=== PATIENT | male | born 1940 | race Caucasian/White ===

== ENCOUNTER 2019-06-11 06:32 | Day surgery (SDC) | payer MEDICARE, BC ==
[~2019-06-11 06:32] MED LIST: Lactated Ringers 1,000 ML IV SCH
[2019-06-11] MEDS ORDERED: Propofol 200 MG/20 ML SDV ONE ×2 (07:28→08:32)
[2019-06-11] MEDS ORDERED: fentaNYL 100 MCG/2 ML SDV ONE (07:28)
[2019-06-11] MEDS ORDERED: Lidocaine 2% 5 ML SDV ONE (07:28)
--- NOTE | 2019-06-11 07:34 | PCM.PREANE ---
Preanesthetic Assessment - Anesthesia/Transfusion/Family Hx Anesthesia History: Prior Anesthesia Without Reaction Other Type of Anesthesia Reaction Comment: DENIES ANY PROBLEMS WITH ANESTHESIA Family History of Anesthesia Reaction: No Transfusion History: No Prior Transfusion(s) - Review of Systems General: No Symptoms Pulmonary: No Symptoms Cardiovascular: No Symptoms Gastrointestinal: No Symptoms Neurological: No Symptoms Other: Reports: None - Physical Assessment NPO Status Date: 06/11/19 NPO Status Time: 22:00 Vital Signs: Last Vital Signs Temp 97.3 F 06/11/19 06:45 Pulse 87 06/11/19 06:45 Resp 18 06/11/19 06:45 BP 124/84 06/11/19 06:45 Pulse Ox 94 L 06/11/19 06:45 Height: 5 ft 10 in Weight: 80.286 kg ASA Class: 3 Mental Status: Alert & Oriented x3 Airway Class: Mallampati = 2 Dentition: Reports: Dentures (full, upper and lower) ROM/Head Extension: Full Lungs: Clear to Auscultation, Normal Respiratory Effort Cardiovascular: Regular Rate, Regular Rhythm - Lab Values: Laboratory Last Values POC Glucose 118 mg/dL (60-110) H 06/11/19 07:01 - Allergies Allergies/Adverse Reactions: Allergies Allergy/AdvReac Type Severity Reaction Status Date / Time No Known Allergies Allergy Verified 06/08/19 08:28 - Blood Blood Available: No - Anesthesia Plan Pre-Op Medication Ordered: None - Acknowledgements Anesthesia Type Planned: General Anesthesia Pt an Appropriate Candidate for the Planned Anesthesia: Yes Alternatives and Risks of Anesthesia Discussed w Pt/Guardian: Yes Pt/Guardian Understands and Agrees with Anesthesia Plan: Yes Additional Comments: PMH: cad, no DC, but stent placed 2001, on aspirin last dose 48 hr ago, DM2 glucose 118 upon arrival, gerd, htn PLAN: tiva PreAnesthesia Questionnaire HEENT History: Reports: Other (See Below) Other HEENT History: reading glasses, top and bottom dentures Cardiovascular History: Reports: Hypertension Respiratory History: Reports: None Gastrointestinal History: Reports: None Genitourinary History: Reports: Prostate Disorder, Renal Calculus Musculoskeletal History: Reports: Arthritis Neurological History: Reports: None Psychiatric History: Reports: None Endocrine/Metabolic History: Reports: Other (See Below) Other Endocrine/Metabolic History: "borderline diabetic" Hematologic History: Reports: None Immunologic History: Reports: None Oncologic (Cancer) History: Reports: None Dermatologic History: Reports: None - Past Surgical History Head Surgeries/Procedures: Reports: None HEENT Surgical History: Reports: None Cardiovascular Surgical History: Reports: Coronary Artery Stent Respiratory Surgical History: Reports: None GI Surgical History: Reports: Cholecystectomy Male Surgical History: Reports: Kidney Stone Extraction Endocrine Surgical History: Reports: None Neurological Surgical History: Reports: None Musculoskeletal Surgical History: Reports: None Oncologic Surgical History: Reports: None Dermatological Surgical History: Reports: None - SUBSTANCE USE Smoking Status *Q: Former Smoker Recreational Drug Use History: No - HOME MEDS Home Medications: Home Meds Fish Oil/[place]-3 Fatty Acids [Fish Oil 1,000 MG] 1,000 mg PO DAILY 07/18/14 [ History] Folic Acid 1 mg PO DAILY 07/18/14 [History] Metoprolol Succinate 75 mg PO DAILY 07/18/14 [History] Simvastatin [Zocor] 40 mg PO DAILY 07/18/14 [History] Ubidecarenone [Co Q-10] 200 mg PO DAILY 07/18/14 [History] Aspirin [Low Dose Aspirin EC] 81 mg PO DAILY 06/08/19 [History] Isosorbide Mononitrate 20 mg PO DAILY 06/08/19 [History] Nitroglycerin 0.4 mg SL ASDIRECTED PRN 06/08/19 [History] Tamsulosin HCl [Flomax] 0.4 mg PO DAILY 06/08/19 [History] metFORMIN HCl [Metformin HCl ER] 500 mg PO DAILY 06/08/19 [History] - CURRENT (IN HOUSE) MEDS Current Meds: Current Medications Lactated Ringer's (Ringers, Lactated) 1,000 mls @ 125 mls/hr IV ASDIRECTED DORY Last Admin: 06/11/19 07:00 Dose: 125 mls/hr
--- NOTE | 2019-06-11 08:50 | PCM.OPNOTE ---
- General Post-Op/Procedure Note Date of Surgery/Procedure: 06/11/19 Operative Procedure(s): Colonoscopy with snare, proximal sigmoid colon polypectomy and biopsy. Mid sigmoid mass. Tattooing of mid sigmoid mass Pre Op Diagnosis: Change in bowel habits. Unexplained weight loss. Colorectal cancer screening. Post-Op Diagnosis: Proximal and mid sigmoid colon polyps. Sigmoid diverticulosis. Anesthesia Technique: MAC (ASA III) Primary Surgeon: Chente Loyd Condition: Good Free Text/Narrative:: DICTATION 653138 CPT CODE [id number]
[2019-06-11] MEDS ORDERED: Lactated Ringers 1,000 ML IV SCH (09:00)
--- NOTE | 2019-06-11 11:21 | PCM.POSTAN ---
POST ANESTHESIA ASSESSMENT - MENTAL STATUS Mental Status: Alert, Oriented - VITAL SIGNS Vital Signs: Last Vital Signs Temp 96.4 F 06/11/19 09:05 Pulse 60 06/11/19 09:15 Resp 16 06/11/19 09:15 BP 138/68 06/11/19 09:15 Pulse Ox 100 06/11/19 09:15 - RESPIRATORY Respiratory Status: Respiratory Rate WNL, Airway Patent, O2 Saturation Stable - CARDIOVASCULAR CV Status: Pulse Rate WNL, Blood Pressure Stable - GASTROINTESTINAL GI Status: No Symptoms - POST OP HYDRATION Hydration Status: Adequate & Stable
--- NOTE | 2019-06-11 11:21 | PCM48HPAN ---
Post Anesthesia Note - EVALUATION WITHIN 48HRS OF ANESTHETIC Vital Signs in Normal Range: Yes Patient Participated in Evaluation: Yes Respiratory Function Stable: Yes Airway Patent: Yes Cardiovascular Function Stable: Yes Hydration Status Stable: Yes Pain Control Satisfactory: Yes Nausea and Vomiting Control Satisfactory: Yes Mental Status Recovered: Yes Vital Signs: Last Vital Signs Temp 96.4 F 06/11/19 09:05 Pulse 60 06/11/19 09:15 Resp 16 06/11/19 09:15 BP 138/68 06/11/19 09:15 Pulse Ox 100 06/11/19 09:15
--- NOTE | 2019-06-11 12:26 | OR ---
SURGEON: Chente Loyd M.D. DATE OF PROCEDURE: 06/11/2019 OPERATIONS PERFORMED: Colonoscopy with snare, proximal sigmoid colon polypectomy, and biopsy of sigmoid mass at 35 cm. PRIMARY SURGEON: Chente Loyd M.D. ANESTHESIA: MAC. ASA CLASSIFICATION: III. PREOPERATIVE DIAGNOSES: 1. Desire for colorectal cancer screening. 2. Change in bowel habits. 3. Unexplained weight loss. POSTOPERATIVE DIAGNOSES: 1. Proximal sigmoid polyp. 2. Mid sigmoid polyp. 3. Sigmoid diverticulosis. DESCRIPTION OF PROCEDURE: The patient was taken to the endoscopy room and positioned on the endoscopy table in the left lateral decubitus position. Time-out was called for appropriate identification of the patient and procedure. Monitored anesthesia care was provided. The colonoscope was inserted into the rectum and advanced with minimal difficulty to the cecum where the colonoscope was retroflexed to visualize the ascending colon from below. The colonoscope was then straightened and slowly withdrawn. The cecum, ascending colon, hepatic flexure, transverse colon, splenic flexure, and descending colon showed no tumors, polyps, diverticula, or angiodysplastic changes. Sigmoid colon demonstrates numerous sigmoid diverticula. At approximately 60 cm, one polyp was encountered and removed with the snare electrocautery and recovered. The colonoscope was then withdrawn to approximately 35 cm where a larger flat polyp was encountered. Multiple biopsies of this area were obtained, although I could not remove the entire thing. This was therefore tattooed as I think he would benefit from a saline lift polypectomy, which is not available here. The colonoscope was then withdrawn to the distal rectum, seeing nothing other than the diverticular changes as noted. The colonoscope was retroflexed in the rectum to visualize the anal orifice from above. No tumors or polyps were encountered, and there were no acute hemorrhoidal changes. The colonoscope was then straightened, the rectum aspirated, and the colonoscope removed. The patient tolerated the procedure well and was taken to recovery room in stable condition. BROOKS / EH /[id number]
== END 2019-06-11 09:25 | disposition home or self-care (01) ==
LOC: MW.SDS 06:32
PROVIDERS: ATTEND Surgery
DX: D12.5 Benign neoplasm of sigmoid colon (principal); K57.30 Diverticulosis of large intestine without perforation or abscess without bleeding; K59.00 Constipation, unspecified; R63.4 Abnormal weight loss; I25.10 Atherosclerotic heart disease of native coronary artery without angina pectoris; I10 Essential (primary) hypertension; E11.9 Type 2 diabetes mellitus without complications; E78.00 Pure hypercholesterolemia, unspecified; K21.9 Gastro-esophageal reflux disease without esophagitis; M16.11 Unilateral primary osteoarthritis, right hip; M54.31 Sciatica, right side; N40.0 Benign prostatic hyperplasia without lower urinary tract symptoms; Z68.25 Body mass index [BMI] 25.0-25.9, adult; Z95.5 Presence of coronary angioplasty implant and graft; Z87.891 Personal history of nicotine dependence; Z79.82 Long term (current) use of aspirin; Z79.84 Long term (current) use of oral hypoglycemic drugs; Z79.899 Other long term (current) drug therapy
CPT/HCPCS: 00811; 82962; 88305; J2001; J2704; J3010; J7120

== ENCOUNTER 2019-11-12 06:37 | Day surgery (SDC) | payer MEDICARE, BC ==
[2019-11-12] MEDS ORDERED: ceFAZolin 2 GM in Premix Bag 1 BAG IV SCH (07:00)
[2019-11-12] MEDS ORDERED: Lactated Ringers 1,000 ML IV SCH ×2 (07:00→10:15)
[2019-11-12] MEDS ORDERED: ceFAZolin 1 GM Vial ONE ×2 (07:30→07:49)
[2019-11-12] MEDS ORDERED: Bupivacaine 0.5% 30 ML SDV ONE (07:30)
[2019-11-12] MEDS ORDERED: Propofol 200 MG/20 ML SDV ONE (07:45)
[2019-11-12] MEDS ORDERED: Lidocaine 2% 5 ML SDV ONE (07:45)
[2019-11-12] MEDS ORDERED: Midazolam 1 MG/ML 2 ML SDV ONE (07:46)
[2019-11-12] MEDS ORDERED: fentaNYL 100 MCG/2 ML SDV ONE (07:46)
[2019-11-12] MEDS ORDERED: Rocuronium 100 MG/10 ML Syringe ONE (07:46)
--- NOTE | 2019-11-12 07:51 | PCM.PREANE ---
Preanesthetic Assessment - Anesthesia/Transfusion/Family Hx Anesthesia History: Prior Anesthesia Without Reaction Other Type of Anesthesia Reaction Comment: DENIES ANY PROBLEMS WITH ANESTHESIA Family History of Anesthesia Reaction: No Transfusion History: No Prior Transfusion(s) Intubation History: Unknown - Review of Systems General: No Symptoms Pulmonary: No Symptoms Cardiovascular: No Symptoms Gastrointestinal: No Symptoms Neurological: No Symptoms Other: Reports: None - Physical Assessment Height: 5 ft 9 in Weight: 78.925 kg ASA Class: 3 Mental Status: Alert & Oriented x3 Airway Class: Mallampati = 2 Dentition: Reports: Dentures (upper and lower) Thyro-Mental Finger Breadths: 3 Mouth Opening Finger Breadths: 3 ROM/Head Extension: Full Lungs: Clear to Auscultation, Normal Respiratory Effort Cardiovascular: Regular Rate, Regular Rhythm - Lab Values: Laboratory Last Values POC Glucose 105 mg/dL (60-110) 11/12/19 07:30 - Allergies Allergies/Adverse Reactions: Allergies Allergy/AdvReac Type Severity Reaction Status Date / Time No Known Allergies Allergy Verified 11/09/19 08:01 - Blood Blood Available: No - Anesthesia Plan Pre-Op Medication Ordered: None - Acknowledgements Anesthesia Type Planned: General Anesthesia Pt an Appropriate Candidate for the Planned Anesthesia: Yes Alternatives and Risks of Anesthesia Discussed w Pt/Guardian: Yes Pt/Guardian Understands and Agrees with Anesthesia Plan: Yes PreAnesthesia Questionnaire HEENT History: Reports: Other (See Below) Other HEENT History: reading glasses, top and bottom dentures Cardiovascular History: Reports: CAD (stent x1 '02), High Cholesterol, Hypertension Respiratory History: Reports: SOB (after walking 2 blocks) Gastrointestinal History: Reports: Colon Polyp, Diverticulosis, GERD Genitourinary History: Reports: BPH, Renal Calculus Musculoskeletal History: Reports: Arthritis Neurological History: Reports: None Psychiatric History: Reports: Depression Other Psychiatric History: depression at times as is in intermediate Endocrine/Metabolic History: Reports: Other (See Below) Other Endocrine/Metabolic History: prediabetic Hematologic History: Reports: None Immunologic History: Reports: None Oncologic (Cancer) History: Reports: None Dermatologic History: Reports: None - Past Surgical History Head Surgeries/Procedures: Reports: None HEENT Surgical History: Reports: Cataract Surgery Cardiovascular Surgical History: Reports: Coronary Artery Stent Respiratory Surgical History: Reports: None GI Surgical History: Reports: Cholecystectomy, Colonoscopy Male Surgical History: Reports: Kidney Stone Extraction Endocrine Surgical History: Reports: None Neurological Surgical History: Reports: None Musculoskeletal Surgical History: Reports: None Oncologic Surgical History: Reports: None Dermatological Surgical History: Reports: None - SUBSTANCE USE Smoking Status *Q: Former Smoker Tobacco Use Within Last Twelve Months: No Recreational Drug Use History: No - HOME MEDS Home Medications: Home Meds Fish Oil/[place]-3 Fatty Acids [Fish Oil 1,000 MG] 1,000 mg PO DAILY 07/18/14 [ History] Folic Acid 1 mg PO DAILY 07/18/14 [History] Metoprolol Succinate 75 mg PO BEDTIME 07/18/14 [History] Simvastatin [Zocor] 40 mg PO BEDTIME 07/18/14 [History] Ubidecarenone [Co Q-10] 200 mg PO DAILY 07/18/14 [History] Aspirin [Low Dose Aspirin EC] 81 mg PO DAILY 06/08/19 [History] Isosorbide Mononitrate 20 mg PO BEDTIME 06/08/19 [History] Nitroglycerin 0.4 mg SL ASDIRECTED PRN 06/08/19 [History] Tamsulosin HCl [Flomax] 0.4 mg PO BEDTIME 06/08/19 [History] metFORMIN HCl [Metformin HCl ER] 500 mg PO DAILY 06/08/19 [History] - CURRENT (IN HOUSE) MEDS Current Meds: Current Medications Cefazolin Sodium/Dextrose 2 gm (/ Premix) 50 mls @ 100 mls/hr IV ONETIME DORY Lactated Ringer's (Ringers, Lactated) 1,000 mls @ 125 mls/hr IV ASDIRECTED DORY Discontinued Medications Bupivacaine HCl (Marcaine 0.5%) Confirm Administered Dose 30 ml .ROUTE .STK-MED ONE Stop: 11/12/19 07:31 Cefazolin Sodium (Ancef) Confirm Administered Dose 1 gm .ROUTE .STK-MED ONE Stop: 11/12/19 07:31
[2019-11-12] MEDS ORDERED: Phenylephrine/Normal Saline 100 MCG/ML 10 ML Syringe ONE ×2 (08:41→08:42)
[2019-11-12] MEDS ORDERED: fentaNYL 100 MCG/2 ML SDV IVPUSH PRN (08:55)
[2019-11-12] MEDS ORDERED: Neostigmine Methylsulfate 1 MG/ML 5 ML Syringe ONE (08:59)
[2019-11-12] MEDS ORDERED: Glycopyrrolate 0.2 MG/ML SDV ONE ×2 (08:59→09:48)
[2019-11-12] MEDS ORDERED: Ondansetron 4 MG/2 ML SDV ONE (08:59)
[2019-11-12] MEDS ORDERED: Ketorolac 30 MG/ML SDV ONE (09:49)
[2019-11-12] MEDS ORDERED: Acetaminophen/HYDROcodone 325-5 MG Tab PO PRN (10:04)
[2019-11-12] MEDS ORDERED: Ondansetron 4 MG/2 ML SDV IVPUSH PRN (10:04)
[2019-11-12] MEDS ORDERED: Morphine 10 MG/ML Syringe IVPUSH PRN (10:04)
--- NOTE | 2019-11-12 10:07 | PCM.OPNOTE ---
- General Post-Op/Procedure Note Date of Surgery/Procedure: 11/12/19 Operative Procedure(s): Repair reducible right inguinal hernia with large Bard PerFix plug and patch Pre Op Diagnosis: Reducible right inguinal hernia Post-Op Diagnosis: Same Anesthesia Technique: General ET Tube (ASA III) Primary Surgeon: Chente Loyd Fluid Replacement, Intraop: 1,000 EBL in mLs: 10 Condition: Good Free Text/Narrative:: DICTATION [id number] CPT CODE [id number]
--- NOTE | 2019-11-12 10:31 | PCM.POSTAN ---
POST ANESTHESIA ASSESSMENT - MENTAL STATUS Mental Status: Alert, Oriented - VITAL SIGNS Vital Signs: Last Vital Signs Temp 36 C L 11/12/19 09:56 Pulse 50 L 11/12/19 10:26 Resp 10 L 11/12/19 10:26 BP 112/48 L 11/12/19 10:26 Pulse Ox 99 11/12/19 10:26 - RESPIRATORY Respiratory Status: Respiratory Rate WNL, Airway Patent, O2 Saturation Stable - CARDIOVASCULAR CV Status: Pulse Rate WNL, Blood Pressure Stable - GASTROINTESTINAL GI Status: No Symptoms - PAIN Pain Score: 4 - POST OP HYDRATION Hydration Status: Adequate & Stable - OBSERVATIONS Free Text/Narrative:: No anesthesia problems
--- NOTE | 2019-11-12 11:51 | PCM48HPAN ---
Post Anesthesia Note - EVALUATION WITHIN 48HRS OF ANESTHETIC Vital Signs in Normal Range: Yes Patient Participated in Evaluation: Yes Respiratory Function Stable: Yes Airway Patent: Yes Cardiovascular Function Stable: Yes Hydration Status Stable: Yes Pain Control Satisfactory: Yes Nausea and Vomiting Control Satisfactory: Yes Mental Status Recovered: Yes Vital Signs: Last Vital Signs Temp 35.9 C L 11/12/19 10:23 Pulse 50 L 11/12/19 10:26 Resp 10 L 11/12/19 10:26 BP 112/48 L 11/12/19 10:26 Pulse Ox 99 11/12/19 10:26 - COMMENTS/OBSERVATIONS Free Text/Narrative:: No anesthesia problems.
--- NOTE | 2019-11-12 12:40 | OR ---
SURGEON: Chente Loyd M.D. DATE OF PROCEDURE: 11/12/2019 OPERATION PERFORMED: Repair of right inguinal hernia with large Bard PerFix [id number]. PRIMARY SURGEON: Chente Loyd MD. ANESTHESIA: General endotracheal. ASA CLASSIFICATION: III. PREOPERATIVE DIAGNOSIS: Symptomatic reducible right inguinal hernia. POSTOPERATIVE DIAGNOSIS: Symptomatic reducible right inguinal hernia. ESTIMATED BLOOD LOSS: 10 mL. INTRAOPERATIVE FLUID REPLACEMENT: 1000 mL of crystalloid. DESCRIPTION OF PROCEDURE: The patient was taken to the operating room and placed on the operating table in the supine position. Time-out was called for appropriate identification. The surgical site was then prepped with DuraPrep solution. Sterile drapes were applied. Skin incision was marked out in the right inguinal crease. The skin was now infiltrated with 10 mL of 0.5% Marcaine solution. Skin incision was made and deepened through the subcutaneous tissue obtaining hemostasis with the use of electrocautery. Dissection was carried down to the external oblique fascia. This was opened in the direction of its fibers and retracted. The spermatic cord was mobilized away from the hernia sac. There was also a lipoma of the cord. Once the lipoma and hernia sac were mobilized, these were able to be reduced. It should be noted that the spermatic cord was protected by a [place] drain throughout the entire procedure. A large Bard PerFix plug-and- patch was brought to the operating table. This was soaked in 1% Ancef solution. The plug was placed into the internal ring. This was secured with interrupted 0 Ethibond sutures. The patch was then placed over the floor and secured medially and inferiorly to Cristopher ligament transitioning to the inguinal ligament and superiorly to the transversalis fascia. The wings were brought around the cord laterally and again secured with 0 Ethibond suture. All sutures had been placed under direct vision and held with hemostats. Once the final suture was placed, all sutures were secured. The lateral stitch was also tied. The patient was now given a Valsalva maneuver to 40 cm of water. The repair was solid and without tension. The wound was then inspected for hemostasis and small bleeding sites were electrocoagulated. The incision was irrigated with 1% Ancef solution. The [place] drain was removed and the cord returned to its anatomic location. The external oblique fascia was now reapproximated with 3-0 Vicryl. Brennan fascia was closed with 3-0 Vicryl and skin edges were reapproximated with subcuticular 4-0 Monocryl, reinforced with half-inch Steri-Strips. Sterile Tegaderm pad was placed as a dressing. Sponge, needle, and instrument counts were all correct. The patient tolerated the procedure well. Following emergence from anesthesia and extubation, he was taken to recovery room in satisfactory condition. BROOKS / EH /[id number]
== END 2019-11-12 11:59 | disposition home or self-care (01) ==
LOC: MW.SDS 06:37
PROVIDERS: ATTEND Surgery
DX: K40.90 Unilateral inguinal hernia, without obstruction or gangrene, not specified as recurrent (principal); D17.6 Benign lipomatous neoplasm of spermatic cord; I10 Essential (primary) hypertension; K21.9 Gastro-esophageal reflux disease without esophagitis; E78.00 Pure hypercholesterolemia, unspecified; E11.9 Type 2 diabetes mellitus without complications; I25.10 Atherosclerotic heart disease of native coronary artery without angina pectoris; M16.11 Unilateral primary osteoarthritis, right hip; M19.011 Primary osteoarthritis, right shoulder; N40.0 Benign prostatic hyperplasia without lower urinary tract symptoms; Z79.82 Long term (current) use of aspirin; Z79.899 Other long term (current) drug therapy; Z79.84 Long term (current) use of oral hypoglycemic drugs; Z98.890 Other specified postprocedural states; Z87.891 Personal history of nicotine dependence; Z86.010 Personal history of colon polyps
CPT/HCPCS: 49505; 82962; A9270; J0690; J1885; J2001; J2250; J2370; J2405; J2704; J3010; J3490; J7120; 00830; C1781

== ENCOUNTER 2022-07-05 06:00 | Day surgery (SDC) | payer MEDICARE, BC ==
[2022-07-05] MEDS ORDERED: fentaNYL 100 MCG/2 ML SDV ONE (09:35)
[2022-07-05] MEDS ORDERED: Propofol 200 MG/20 ML SDV ONE (09:35)
[2022-07-05] MEDS ORDERED: Lactated Ringers 700 ML IV ONE (09:45)
[2022-07-05] MEDS ORDERED: Lactated Ringers 1,000 ML IV ONE (09:50)
== END 2022-07-05 11:20 ==
LOC: MW.SDS 06:00
PROVIDERS: ATTEND Surgery
DX: D12.4 Benign neoplasm of descending colon (principal); K29.00 Acute gastritis without bleeding; K57.30 Diverticulosis of large intestine without perforation or abscess without bleeding; K44.9 Diaphragmatic hernia without obstruction or gangrene; I10 Essential (primary) hypertension; E11.42 Type 2 diabetes mellitus with diabetic polyneuropathy; E78.00 Pure hypercholesterolemia, unspecified; J44.9 Chronic obstructive pulmonary disease, unspecified; F32.A Depression, unspecified; M16.11 Unilateral primary osteoarthritis, right hip; Z79.899 Other long term (current) drug therapy; Z79.82 Long term (current) use of aspirin; Z79.84 Long term (current) use of oral hypoglycemic drugs; Z98.890 Other specified postprocedural states; Z87.891 Personal history of nicotine dependence
CPT/HCPCS: 43239; 45380; 45385; J2704; J3010; J7120